=== PATIENT | female | born 1985 | race Caucasian/White ===

== ENCOUNTER 2017-02-05 14:46 | Inpatient (IN) | payer BC ==
[2017-02-05 15:23] LABS: #Lymphocytes 0.9 thou/uL (1.20-3.40); #Monocytes 0.9 thou/uL (0.11-0.59); #Neutrophils 8.6 thou/uL (1.40-6.50); %Basophils 0.1 % (0.0-1.0); %Eosinophils 0.1 % (0.0-10.0); %Lymphocytes 8.8 % (21.0-51.0); %Monocytes 8.4 % (0.0-10.0); Hematocrit 42.3 % (36.0-47.0); Mean Platelet Volume 7.4 fL (7.4-10.4); White Blood Cell (WBC) Count 10.4 thou/uL (4.8-10.8)
[2017-02-05 15:47] LABS: ALT (SGPT) 17 U/L (8-55); AST (SGOT) 20 U/L (5-34); Alkaline Phosphatase 57 U/L (40-150); Anion Gap 16 mmol/L (10-20); BUN (Urea Nitrogen) 10 mg/dL (7.0-18.7); Bilirubin, Total 1.6 mg/dL (0.2-1.2); Calc. Creatinine Clearance 0 mL/min (70-130); Carbon Dioxide 31 mmol/L (22-29); Chloride 89 mmol/L (98-107); Estimated GFR-MDRD Greater than 90; Globulin 3.2 g/dL (2.4-3.5); Protein, Total 6.9 g/dL (6.0-8.3)
[2017-02-05 15:49] LABS: Magnesium 1.4 mg/dL (1.6-2.6)
[2017-02-05 15:50] LABS: Troponin I Less than 0.010 ng/mL (< 0.028)
[2017-02-05] MEDS ORDERED: Ondansetron HCl/PF 4 MG/2 ML Vial ONE (15:51)
[2017-02-05] MEDS ORDERED: Potassium Chloride 20 MEQ TAB ONE ×3 (16:11→21:23)
[2017-02-05] MEDS ORDERED: Multivitamins, Adult 10 ML, Thiamine HCl 100 MG, Folic Acid 1 MG in Dextrose 5 %-0.45 %... IV ONE ×4 (16:15)
[2017-02-05] MEDS ORDERED: Magnesium Sulfate 2 GM/100 ML BAG ONE (16:23)
--- NOTE | 2017-02-05 16:29 | RAD ---
EXAM: ONE VIEW CHEST 02/05/17 HISTORY: Weakness. COMPARISON: None. FINDINGS: Normal cardiac silhouette. The pulmonary vessels and hilum are normal. No mass. No consolidation. No pneumothorax or osseous abnormalities. IMPRESSION: No acute cardiopulmonary process. POS: QASIMH
[2017-02-05 16:49] LABS: Bilirubin Small (Negative); Blood, Urine Negative (Negative); Glucose, Urine (Dipstick) Negative (Negative); Ketone, Urine Trace mg/dL (Negative); Nitrite Positive (Negative); Protein, Urine (Dipstick) 30 mg/dL (Neg-Trace)
[2017-02-05 16:51] LABS: Bacteria/HPF 4+ HPF (None Seen); Hyaline Casts/LPF 4-6 HYALINE CAST LPF (0-3 Hyaline); Squamous Epithelial None Seen HPF (0-3); WBC/HPF 21-50 HPF (0-3)
[2017-02-05 17:00] LABS: Amphetamine Not Detected (NotDetected); Methadone Not Detected (NotDetected); Methamphetamine Not Detected (NotDetected)
[2017-02-05 17:02] LABS: RBC/HPF 0-3 HPF (0-3)
[2017-02-05] MEDS ORDERED: Acetaminophen 325 MG TAB ONE (17:53)
[2017-02-05 20:30] LABS: Anion Gap 10 mmol/L (-14-95); Critical Call POC Critical Value; pH (Venous) 7.521 (7.35-7.45); vO2 Saturation-calc 90.7 % (0.0-100.0)
[2017-02-05 21:13] LABS: Anion Gap 11 mmol/L (10-20); BUN (Urea Nitrogen) 8 mg/dL (7.0-18.7); Calc. Creatinine Clearance 0 mL/min (70-130); Calcium 8.1 mg/dL (7.8-10.44); Carbon Dioxide 30 mmol/L (22-29); Chloride 96 mmol/L (98-107); Estimated GFR-MDRD Greater than 90
--- NOTE | 2017-02-05 22:34 | PDOC.EVN ---
Event Note - Event Note Event Note: [id number] h&p dictated 1. Hypokalemia 2. Hypomagnesemia 3. Near syncope 4. UTI Plan: see orders
[2017-02-05] MEDS ORDERED: Ondansetron HCl/PF 4 MG/2 ML Vial IVP PRN (22:35)
[2017-02-05] MEDS ORDERED: Acetaminophen 325 MG TAB PO PRN (22:35)
[2017-02-05] MEDS ORDERED: HYDROcodone/Acetaminophen 5/325 mg Tablet PO PRN (22:35)
[2017-02-05] MEDS ORDERED: Potassium Chloride 20 MEQ TAB PO SCH (22:45)
[2017-02-05] MEDS ORDERED: cefTRIAXone\\ROCEPHIN 1 GM in Sodium Chloride 0.9% 100 ML IVPB SCH (23:00)
[2017-02-06] MEDS: NS 0.9% w/ 40 MEQ KCL 1,000 ML IV SCH ×3 (00:43→22:01)
--- NOTE | 2017-02-06 03:18 | HP ---
CHIEF COMPLAINT: Near syncope. HISTORY OF PRESENT ILLNESS: Patient is a 31-year-old female with past medical history of nephrolith iasis, seasonal allergies and GERD. Patient had bilateral ureteral stents placed 3 weeks back and h ad ureteral stents removed last week on . The patient had 3 stents exchanged last week on and Friday, bilateral. Patient said after the stents exchanged, she felt extremely tired an d having severe pain, so patient went and had stents removed on Friday. The patient was feeling oka y yesterday, but today she started having decreased p.o. intake associated with nausea. The patient was having numerous episodes of vomiting for the past 3 weeks and decreased p.o. intake. Denies an y fever, denies any chills. The patient went to the restroom today, patient was extremely weak. Tony crabtree slowly landed on the ground. Denies any headache injury, denies passing out. When her husban d tried to standup the patient, patient was extremely weak as if she was going to pass out. Denies loss of consciousness. The patient was brought to the ER because of the fatigue. PAST MEDICAL HISTORY: As per HPI. PAST SURGICAL HISTORY: Cholecystectomy gastrectomy, bilateral ureteral stents placement. SOCIAL HISTORY: Positive for smoking. Denies alcohol, denies any drugs. FAMILY HISTORY: Positive for diabetes mellitus and hypertension. REVIEW OF SYSTEMS: Constitutional: Denies any fever. Denies any chills. Eyes: Denies any vision problems. Ears: Denies hearing loss. Neck: Denies neck pain. Cardiovascular System: Denies an y chest pain. Gastrointestinal: Positive for nausea and vomiting. Musculoskeletal: Denies joint deformities. Positive for generalized weakness. Cranial Nervous System: Positive for near syncope . Psychiatric: Denies depression or anxiety. Integumentary: Denies any rash. All other review of systems are reviewed and are negative. PHYSICAL EXAMINATION: CONSTITUTIONAL/VITAL SIGNS: At the time of H\T\P performed, blood pressure is 120/70, afebrile, pul se ox 97% on room air. GENERAL: The patient appears comfortable. HEENT: Pupils are equal, round and reactive. Anterior nares patent. Teeth intact. Tongue is mois t. NECK: Supple. No JVD. CARDIOVASCULAR SYSTEM: S1 and S2 present. Regular rate and rhythm. No murmurs, no rubs, no gallop s. RESPIRATORY SYSTEM: No wheezing, no rhonchi. Normal effort. Breath sounds bilaterally. GASTROINTESTINAL: Abdomen is soft and nontender. No guarding, no organomegaly, no masses felt. MUSCULOSKELETAL: No edema. INTEGUMENT: No rashes seen. PSYCHIATRIC: Denies depression or anxiety. Mood calm. CRANIAL NERVOUS SYSTEM: Intact. Follows commands. Speech clear. LABORATORY AND IMAGING DATA: At the time of H\T\P performed, white count 10.4, hemoglobin 14.7 and platelet count 184. BMP showed sodium of 134, potassium 2.6, chloride 96, CO2 of 30, BUN of 8, crea tinine 0.54, mag 1.4, calcium 8.1, troponin less than 0.010. EKG: Positive for t-wave inversions. UA positive for nitrites and 21-50 wbc's. ASSESSMENT AND PLAN: The patient is a 31-year-old female. 1. Near syncope, probably secondary to hypovolemia. Start IV fluids, monitor the patient closely. If symptoms persist, we will do a CT head. At this time, we will monitor the patient closely. 2. Hypokalemia and hypomagnesemia. Replace potassium and magnesium. Monitor closely. Check BMP i n a.m. 3. Urinary tract infection. Plan to place the patient on broad-spectrum antibiotics. We will send urine for culture and sensitivity. 4. History of recent ureteral stent removal. Monitor the patient closely. P.r.n. pain meds. 5. Nausea and vomiting. P.r.n. antiemetics. The case was discussed in detail with the patient and patient's family.
[2017-02-06 06:32] LABS: #Lymphocytes 1.4 thou/uL (1.20-3.40); #Monocytes 0.7 thou/uL (0.11-0.59); #Neutrophils 4.2 thou/uL (1.40-6.50); %Basophils 0.2 % (0.0-1.0); %Eosinophils 0.6 % (0.0-10.0); %Lymphocytes 22.1 % (21.0-51.0); %Monocytes 10.4 % (0.0-10.0); Hematocrit 34.4 % (36.0-47.0); Mean Platelet Volume 7.6 fL (7.4-10.4); Red Blood Cell (RBC) Count 3.75 mill/uL (4.20-5.40); White Blood Cell (WBC) Count 6.4 thou/uL (4.8-10.8)
[2017-02-06 06:52] LABS: Anion Gap 8 mmol/L (10-20); BUN (Urea Nitrogen) 5 mg/dL (7.0-18.7); Calc. Creatinine Clearance 204 mL/min (70-130); Calcium 7.9 mg/dL (7.8-10.44); Carbon Dioxide 30 mmol/L (22-29); Chloride 102 mmol/L (98-107); Estimated GFR-MDRD Greater than 90
[2017-02-06] MEDS ORDERED: FLU VACC QS2017-18 36 mo. & older 0.5 ML SYRINGE IM ONE (09:00)
[2017-02-06] MEDS ORDERED: Acetaminophen/Codeine 30-300mg Tablet PO PRN (10:03)
[2017-02-06] MEDS: Fluticasone Propionate Nasal Spray 16 gm Bottle NASAL SCH (10:29)
[2017-02-06] MEDS: Famotidine/PF 20 mg/2ml Vial SLOW IVP SCH ×2 (10:30→22:01)
[2017-02-06] MEDS: Heparin 5,000 UNITS/ML VIAL SC SCH ×3 (10:31→22:02)
[2017-02-06] MEDS ORDERED: Meropenem 1 GM in Sodium Chloride 0.9% 100 ML IVPB SCH (11:00)
[2017-02-06] MEDS ORDERED: Magnesium Sulfate 4 GM in Sodium Chloride 0.9% 250 ML 250 ML IVPB SCH (12:30)
--- NOTE | 2017-02-06 12:55 | PDOC.PN ---
- Subjective Encounter Start Date: 02/06/17 Encounter Start Time: 07:40 Pt seen for followup re: hypokalemia. Denies chest pain, shortness of breath, fevers or chills. - Objective MAR Reviewed: Yes Vital Signs & Weight: Vital Signs (12 hours) Temp Pulse Resp BP Pulse Ox 02/06/17 12:20 99.3 F 99 20 112/67 96 02/06/17 09:40 100 F H 108 H 20 96 02/06/17 08:52 100 F H 108 H 20 102/64 96 02/06/17 04:00 99.9 F H 100 18 101/72 95 I&O: 02/05/17 02/06/17 02/07/17 06:59 06:59 06:59 Intake Total 1490 Output Total 900 Balance 590 Result Diagrams: 02/06/17 05:50 02/06/17 05:50 EKG Reviewed by me: Yes (Tele: NSR) Phys Exam - Physical Examination Constitutional: NAD HEENT: moist MMs, sclera anicteric Neck: supple, full ROM Respiratory: no wheezing, no rales, no rhonchi, clear to auscultation bilateral Cardiovascular: RRR, no rub Gastrointestinal: soft, non-tender, positive bowel sounds Musculoskeletal: pulses present Neurological: moves all 4 limbs Psychiatric: normal affect, A&O x 3 Skin: no rash, normal turgor, cap refill <2 seconds Dx/Plan (1) Hypokalemia Code(s): E87.6 - HYPOKALEMIA Status: Acute (2) Hypomagnesemia Code(s): E83.42 - HYPOMAGNESEMIA Status: Acute (3) UTI (urinary tract infection) Status: Acute (4) Generalized weakness Code(s): R53.1 - WEAKNESS Status: Acute (5) Nephrolithiasis Status: Chronic (6) History of ureter stent Code(s): Z96.0 - PRESENCE OF UROGENITAL IMPLANTS Status: Chronic - Plan continue antibiotics, out of bed/ambulate * . Replace potassium, magnesium, recheck. Check thiamine level (pt reportedly on thiamine supplemnts after gastric surgery , but was not taking). Pt has been told by her urologist that her urine cultures grew an organism that was resistant to multiple antibiotics. Will change to IV meropenem in case the organism is ESBL+. Consult ID (h/o nephrolithiasis, ureteric stents, UTI). Review of Systems - Review of Systems Constitutional: Weakness. negative: Fever, Chills, Sweats, Malaise Respiratory: negative: Cough, Dry, Shortness of Breath, Hemoptysis, SOB with Excertion, Pleuritic Pain, Sputum, Wheezing Cardiovascular: negative: Chest Pain, Palpitations, Orthopnea, Paroxysmal Noc. Dyspnea, Edema, Light Headedness Gastrointestinal: negative: Nausea, Vomiting, Abdominal Pain, Diarrhea, Constipation, Melena, Hematochezia Genitourinary: negative: Dysuria, Frequency, Incontinence, Hematuria, Retention - Medications/Allergies Allergies/Adverse Reactions: Allergies Allergy/AdvReac Type Severity Reaction Status Date / Time STERI STRIPS Allergy Rash Uncoded 11/25/16 17:07 Medications: Current Medications Acetaminophen (Tylenol) 650 mg PO Q4H PRN PRN Reason: Headache/Fever or Pain Acetaminophen/Codeine Phosphate (Tylenol #3) 1 tab PO Q4H PRN PRN Reason: Moderate Pain (4-6) Famotidine (Pepcid) 20 mg SLOW IVP Q12HR [facility] Last Admin: 02/06/17 10:30 Dose: 20 mg Fluticasone Propionate (Flonase Nasal [place]) 0 gm NASAL DAILY [facility] Last Admin: 02/06/17 10:29 Dose: 1 spr Heparin Sodium (Porcine) (Heparin) 5,000 units SC TID [facility] Last Admin: 02/06/17 10:31 Dose: 5,000 units Potassium Chloride/Sodium Chloride (Ns 0.9% W/ 40 Meq Kcl) 1,000 mls @ 100 mls/ hr IV .Q10H [facility] Last Admin: 02/06/17 10:28 Dose: 1,000 mls Meropenem 1 gm/ Sodium (Chloride) 100 mls @ 200 mls/hr IVPB Q8H [facility] Magnesium Sulfate 4 gm/ Sodium (Chloride) 258 mls @ 86 mls/hr IVPB NOW [facility] Stop: 02/06/17 16:00 Ondansetron HCl (Zofran) 4 mg IVP Q6H PRN PRN Reason: Nausea/Vomiting Sodium Chloride (Flush - Normal Saline) 10 ml IVF Q12HR [facility] Last Admin: 02/06/17 11:52 Dose: Not Given Sodium Chloride (Flush - Normal Saline) 10 ml IVF PRN PRN PRN Reason: Saline Flush
[2017-02-06] MEDS: Meropenem 1 GM, Admixture Fee 1 EACH in Sodium Chloride 0.9% 100 ML IVPB SCH ×2 (14:46→22:12)
[2017-02-06] MEDS ORDERED: Potassium Chloride 20 MEQ TAB PO SCH (15:45)
--- NOTE | 2017-02-06 21:44 | CON ---
DATE OF CONSULTATION: 02/06/2017 REASON FOR CONSULTATION: Syncopal event, weakness. HISTORY OF PRESENT ILLNESS: A 31-year-old who had sleeve gastrectomy by Dr. Salgado. The initial pro cedure was in September and in November she had a laparoscopic cholecystectomy and has had problems with ne phrolithiasis since. She had interventions by [facility] urologist and had a number of stents placed in both sides, had treatment with broad spectrum antimicrobial therapy and the last stent was removed and replaced after lithotripsy two weeks ago. Subsequently, patient requests to have the s tent removed because of discomfort and this was done about a week ago. Now, she is admitted to this hospital with progressive fatigue, some nausea and vomiting for the past 2 weeks. No fever, no chi lls and then today on the day of admission, she felt weak and lost strength in the legs and fell yanet n, did not hit any part of her body, brought in to the hospital and BP 120/70. She has had no fever . The abdomen is soft, nontender. Respiratory symptoms are normal and the white cell count is 10.4 , hemoglobin 14.7. Sodium 134, potassium 2.6, BUN 8, creatinine 0.54, magnesium 1.4, calcium 8.1. Troponin normal. Some T-wave inversions in EKG. UA was abnormal with 21-50 wbc's. We checked the cultures that were obtained at [facility] recently a few days ago and they were negati ve. Currently, she is feeling better, more strength in lower extremities. No headaches, visual sym ptoms, sore throat, odynophagia, dysphagia. No cough, sputum production, chest pain, or abdominal p ain. No diarrhea, no genitourinary symptoms, no more vomiting. PAST MEDICAL HISTORY: Recent sleeve gastrectomy in September and then problems with vomiting, had cholec ystectomy. The pathology showed only mild chronic cholecystitis, but no acute cholecystitis and the n developed the nephrolithiasis problems, had stents placed and then started having vomiting and beny sea for the past 3 weeks. Treated with antimicrobials, lithotripsy and now, all the stents have bee n removed. DISCUSSION: Differential diagnosis includes volume depletion associated with inability to keep her oral intake probably related to the sleeve gastrectomy. The patient may need a CT of abdomen and pe lvis to verify that there were no complications from the sleeve gastrectomy. The other concern woul d be with inflammatory process remaining in the kidneys. We will go ahead and continue meropenem as currently we will monitor culture results. I think it is more likely that she is having volume dep letion, possibly with an associated complication from the sleeve gastrectomy which is leading to unr emitting vomiting. She needs some supplementation with multivitamins until that situation is clarif ied. I would advise administration of the thiamine and multivitamins. I think this has already bee n carried out by the admitting physician.
[2017-02-07] MEDS: NS 0.9% w/ 40 MEQ KCL 1,000 ML IV SCH (05:08)
[2017-02-07 05:15] LABS: Anion Gap 10 mmol/L (10-20); BUN (Urea Nitrogen) 5 mg/dL (7.0-18.7); Calc. Creatinine Clearance 204 mL/min (70-130); Calcium 8.1 mg/dL (7.8-10.44); Carbon Dioxide 24 mmol/L (22-29); Chloride 109 mmol/L (98-107); Estimated GFR-MDRD Greater than 90; Magnesium 2.2 mg/dL (1.6-2.6)
[2017-02-07 05:19] LABS: #Eosinphils 0.1 thou/uL (0.0-0.7); #Lymphocytes 1.8 thou/uL (1.20-3.40); #Monocytes 0.7 thou/uL (0.11-0.59); #Neutrophils 2.4 thou/uL (1.40-6.50); %Basophils 0.3 % (0.0-1.0); %Eosinophils 2.1 % (0.0-10.0); %Lymphocytes 35.4 % (21.0-51.0); %Monocytes 14.3 % (0.0-10.0); Hematocrit 35.2 % (36.0-47.0); Mean Platelet Volume 8.1 fL (7.4-10.4); Red Blood Cell (RBC) Count 3.72 mill/uL (4.20-5.40)
[2017-02-07] MEDS: Meropenem 1 GM, Admixture Fee 1 EACH in Sodium Chloride 0.9% 100 ML IVPB SCH ×3 (06:25→21:42)
[2017-02-07] MEDS: Famotidine/PF 20 mg/2ml Vial SLOW IVP SCH ×2 (09:03→20:01)
[2017-02-07] MEDS: Heparin 5,000 UNITS/ML VIAL SC SCH ×3 (09:03→20:00)
[2017-02-07] MEDS: Fluticasone Propionate Nasal Spray 16 gm Bottle NASAL SCH (09:07)
--- NOTE | 2017-02-07 12:40 | PDOC.PN ---
- Subjective Encounter Start Date: 02/07/17 Encounter Start Time: 12:38 Pt seen for followup re: UTI. Feels better. No vomiting, still nauseous on and off. No fevers or chills. - Objective MAR Reviewed: Yes Vital Signs & Weight: Vital Signs (12 hours) Temp Pulse Resp BP BP Pulse Ox 02/07/17 12:04 98.1 F 83 18 98 02/07/17 11:45 98.1 F 83 18 113/79 98 02/07/17 08:58 98.1 F 79 17 107/68 99 02/07/17 04:00 98.5 F 85 16 99/69 97 Weight Admit Weight 155 lb 12.8 oz Weight 160 lb I&O: 02/06/17 02/07/17 02/08/17 06:59 06:59 06:59 Intake Total 1790 1601 Output Total 1550 800 Balance 240 801 Result Diagrams: 02/07/17 04:28 02/07/17 04:28 EKG Reviewed by me: Yes (Tele: NSR) Phys Exam - Physical Examination Constitutional: NAD HEENT: moist MMs, sclera anicteric, oral pharynx no lesions Neck: no JVD, supple Respiratory: no wheezing, no rales, no rhonchi, clear to auscultation bilateral Cardiovascular: RRR Gastrointestinal: soft, non-tender, no distention, positive bowel sounds Musculoskeletal: pulses present Neurological: moves all 4 limbs Lymphatic: no nodes Psychiatric: normal affect, A&O x 3 Skin: no rash, normal turgor, cap refill <2 seconds Dx/Plan (1) UTI (urinary tract infection) Status: Acute (2) Generalized weakness Code(s): R53.1 - WEAKNESS Status: Acute (3) History of ureter stent Code(s): Z96.0 - PRESENCE OF UROGENITAL IMPLANTS Status: Chronic (4) Nephrolithiasis Status: Chronic (5) Hypokalemia Code(s): E87.6 - HYPOKALEMIA Status: Resolved (6) Hypomagnesemia Code(s): E83.42 - HYPOMAGNESEMIA Status: Resolved - Plan plan discussed w/ family, continue antibiotics, out of bed/ambulate, DVT proph w /lovenox * . Continue IV meropenem, await urine cultures (Multi drug resistant Enterococcus in cultures done at an outside facility). Ambulate patient. Discontinue IV fluids, advance diet. Transfer to surgical floor. Review of Systems - Review of Systems Constitutional: negative: Fever, Chills, Sweats, Weakness, Malaise Respiratory: negative: Cough, Dry, Shortness of Breath, Hemoptysis, SOB with Excertion, Pleuritic Pain, Sputum, Wheezing Cardiovascular: negative: Chest Pain, Palpitations, Orthopnea, Paroxysmal Noc. Dyspnea, Edema, Light Headedness Gastrointestinal: negative: Nausea, Vomiting, Abdominal Pain, Diarrhea, Constipation, Melena, Hematochezia - Medications/Allergies Allergies/Adverse Reactions: Allergies Allergy/AdvReac Type Severity Reaction Status Date / Time STERI STRIPS Allergy Rash Uncoded 11/25/16 17:07 Medications: Current Medications Acetaminophen (Tylenol) 650 mg PO Q4H PRN PRN Reason: Headache/Fever or Pain Acetaminophen/Codeine Phosphate (Tylenol #3) 1 tab PO Q4H PRN PRN Reason: Moderate Pain (4-6) Famotidine (Pepcid) 20 mg SLOW IVP Q12HR [facility] Last Admin: 02/07/17 09:03 Dose: 20 mg Fluticasone Propionate (Flonase Nasal [place]) 0 gm NASAL DAILY [facility] Last Admin: 02/07/17 09:07 Dose: 1 spr Heparin Sodium (Porcine) (Heparin) 5,000 units SC TID [facility] Last Admin: 02/07/17 09:03 Dose: 5,000 units Meropenem 1 gm/ Miscellaneous Medication 1 each/ Sodium Chloride 100 mls @ 200 mls/hr IVPB Q8HR [facility] Ondansetron HCl (Zofran) 4 mg IVP Q6H PRN PRN Reason: Nausea/Vomiting Sodium Chloride (Flush - Normal Saline) 10 ml IVF Q12HR [facility] Last Admin: 02/07/17 09:08 Dose: 10 ml Sodium Chloride (Flush - Normal Saline) 10 ml IVF PRN PRN PRN Reason: Saline Flush
[2017-02-07 14:24] VITALS: BMI 25.0
--- NOTE | 2017-02-07 15:19 | PRG ---
DATE OF SERVICE: 02/07/2017 SUBJECTIVE: Feeling better, still having weakness in lower extremities, cannot prop herself up from bed without assistance, and needs assistance with ambulation, having improvement in the inability to hold solids and liquids down. No more vomiting, no abdominal pain, no dysuria. OBJECTIVE: VITAL SIGNS: She has been afebrile except for the very first few measurements when she had 100, and BP 130/79, pulse 83, respirations 18, O2 saturation 98%. SKIN EXAM: Normal. No lymphadenopathy. HEENT: Ocular movements are conjugate. Oral cavity moist. NECK: Supple. LUNGS: Clear. HEART: S1, S2, regular rate. ABDOMEN: Soft, not distended. EXTREMITIES: She has fairly weak thigh extensors. She has hyporeflexia noted. Plantar responses are indifferent. LABORATORY DATA: White cell count is 5.0, hemoglobin 11, platelets 141. The cultures with negative urine cultures thus far. ASSESSMENT: Recent sleeve gastrectomy and then development of problems, which led to cholecystectomy. The pathology only showed mild chronic findings, and then continued with inability to maintain proper oral intake. Developed nephrolithiasis, which required intervention with stenting, removal, and more recently treated for presumptive UTI, although cultures at [place] and [place] were negative. Reportedly, cultures at her doctor's office were positive, now presents with loss of strength in lower extremities, inability to stand up without obvious syncopal event on retrospect. DISCUSSION: In the absence of neutrophilia and in the presence of negative cultures done, we will have to question the urinary findings as to its relationship to the weakness demonstrated. It is possible that the patient has neuropathy associated with malnutrition, following a sleeve gastrectomy, which led to the weakness displayed. Waiting on the thiamine level submitted. Continue vitamin supplementation as well as trace mineral supplementation. Add Zinc level to lab orders. MTDD
[2017-02-08] MEDS: Meropenem 1 GM, Admixture Fee 1 EACH in Sodium Chloride 0.9% 100 ML IVPB SCH ×3 (06:07→21:46)
[2017-02-08] MEDS ORDERED: Sodium Chloride 0.65% Nasal 44 ML BOT EA NARE PRN (07:29)
[2017-02-08] MEDS ORDERED: Mag-Al 1200 mg/1200 mg/30 ML UDCUP PO PRN (07:29)
[2017-02-08] MEDS ORDERED: Senokot 8.6 MG TAB PO PRN (07:29)
[2017-02-08] MEDS ORDERED: hydrALAZINE 20 MG/ML VIAL SLOW IVP PRN (07:29)
[2017-02-08] MEDS ORDERED: Loperamide HCl 2 MG CAP PO PRN (07:29)
[2017-02-08] MEDS ORDERED: Temazepam 15 MG CAP PO PRN (07:29)
[2017-02-08] MEDS ORDERED: Loratadine 10 MG TAB PO PRN (07:29)
[2017-02-08] MEDS ORDERED: Diabetic Tussin 200 MG/10 ML UDCUP PO PRN (07:29)
[2017-02-08] MEDS ORDERED: Ondansetron ODT 4 MG TAB PO PRN (07:29)
[2017-02-08] MEDS ORDERED: Eucerin (Mineral Oil/Petrolatum,White) 30 gm Jar TOP PRN (07:29)
[2017-02-08] MEDS ORDERED: HYDROcodone/Acetaminophen 5/325 mg Tablet PO PRN (07:29)
[2017-02-08] MEDS ORDERED: Chloraseptic Spray 180 ml Bottle PO PRN (07:29)
[2017-02-08] MEDS ORDERED: Milk Of Magnesia 30 ML UDCUP PO PRN (07:29)
[2017-02-08] MEDS: Famotidine/PF 20 mg/2ml Vial SLOW IVP SCH ×2 (09:12→20:08)
[2017-02-08] MEDS: Heparin 5,000 UNITS/ML VIAL SC SCH ×3 (09:13→20:15)
[2017-02-08] MEDS: Fluticasone Propionate Nasal Spray 16 gm Bottle NASAL SCH (10:25)
--- NOTE | 2017-02-08 10:47 | PDOC.PN ---
- Subjective Encounter Start Date: 02/08/17 Encounter Start Time: 07:40 -: old records requested/rev Patient seen and examined. No new complaints. No overnight events, no fever - Objective MAR Reviewed: Yes Vital Signs & Weight: Vital Signs (12 hours) Temp Pulse Resp BP BP BP Pulse Ox 02/08/17 08:00 98.3 F 73 14 109/73 98 02/08/17 04:19 97.6 F 83 16 104/73 98 02/07/17 23:45 98.1 F 83 16 105/72 98 Weight Admit Weight 155 lb 12.8 oz Weight 160 lb I&O: 02/07/17 02/08/17 02/09/17 06:59 06:59 06:59 Intake Total 1790 2221 Output Total 1550 800 Balance 240 1421 Result Diagrams: 02/07/17 04:28 02/07/17 04:28 Phys Exam - Physical Examination Constitutional: NAD HEENT: PERRLA, moist MMs, sclera anicteric Neck: no JVD, supple Respiratory: no wheezing, no rales, no rhonchi Cardiovascular: RRR, no significant murmur, no rub Gastrointestinal: soft, non-tender, no distention, positive bowel sounds Musculoskeletal: no edema, pulses present Neurological: non-focal, normal sensation, moves all 4 limbs Psychiatric: normal affect, A&O x 3 Skin: no rash, normal turgor Dx/Plan (1) Generalized weakness Code(s): R53.1 - WEAKNESS Status: Resolved (2) UTI (urinary tract infection) Status: Acute (3) History of ureter stent Code(s): Z96.0 - PRESENCE OF UROGENITAL IMPLANTS Status: Chronic Comment: s/ p stent placement and then removal (4) Nephrolithiasis Status: Chronic Comment: ureteral stone requred stent placement and then removal (5) Hypokalemia Code(s): E87.6 - HYPOKALEMIA Status: Resolved (6) Hypomagnesemia Code(s): E83.42 - HYPOMAGNESEMIA Status: Resolved - Plan cont current plan of care, plan discussed w/ family, continue antibiotics * continue meropenam for now. * repeat culture is negative here * will need macrobid on discharge * dr martinez following Review of Systems - Review of Systems ENT: negative: Ear Pain, Ear Discharge, Nose Pain, Nose Discharge, Nose Congestion, Mouth Pain, Mouth Swelling, Throat Pain, Throat Swelling, Other Respiratory: negative: Cough, Dry, Shortness of Breath, Hemoptysis, SOB with Excertion, Pleuritic Pain, Sputum, Wheezing Cardiovascular: negative: Chest Pain, Palpitations, Orthopnea, Paroxysmal Noc. Dyspnea, Edema, Light Headedness, Other Gastrointestinal: negative: Nausea, Vomiting, Abdominal Pain, Diarrhea, Constipation, Melena, Hematochezia, Other Genitourinary: negative: Dysuria, Frequency, Incontinence, Hematuria, Retention , Other Musculoskeletal: negative: Neck Pain, Shoulder Pain, Arm Pain, Back Pain, Hand Pain, Leg Pain, Foot Pain, Other - Medications/Allergies Allergies/Adverse Reactions: Allergies Allergy/AdvReac Type Severity Reaction Status Date / Time STERI STRIPS Allergy Rash Uncoded 11/25/16 17:07 Medications: Current Medications Acetaminophen (Tylenol) 650 mg PO Q4H PRN PRN Reason: Headache/Fever or Pain Acetaminophen/Codeine Phosphate (Tylenol #3) 1 tab PO Q4H PRN PRN Reason: Moderate Pain (4-6) Hydrocodone Bitart/Acetaminophen ([place] 5/325) 1 tab PO Q4H PRN PRN Reason: Moderate Pain (4-6) Al Hydroxide/Mg Hydroxide (Maalox) 15 ml PO Q4H PRN PRN Reason: Heartburn or Indigestion Famotidine (Pepcid) 20 mg SLOW IVP Q12HR [facility] Last Admin: 02/08/17 09:12 Dose: 20 mg Fluticasone Propionate (Flonase Nasal [place]) 0 gm NASAL DAILY [facility] Last Admin: 02/08/17 10:25 Dose: 1 spr Guaifenesin (Robitussin Sf) 200 mg PO Q4H PRN PRN Reason: Cough Heparin Sodium (Porcine) (Heparin) 5,000 units SC TID [facility] Last Admin: 02/08/17 09:13 Dose: 5,000 units Hydralazine HCl (Apresoline) 10 mg SLOW IVP Q4H PRN PRN Reason: Systolic BP > 180 Meropenem 1 gm/ Miscellaneous Medication 1 each/ Sodium Chloride 100 mls @ 200 mls/hr IVPB Q8HR [facility] Last Admin: 02/08/17 06:07 Dose: 100 mls Loperamide HCl (Imodium) 2 mg PO PRN PRN PRN Reason: Diarrhea/Loose Stools Loratadine (Claritin) 10 mg PO DAILYPRN PRN PRN Reason: Sinus Symptoms Magnesium Hydroxide (Milk Of Magnesium) 30 ml PO DAILYPRN PRN PRN Reason: Constipation Mineral Oil/White Petrolatum (Eucerin Cream) 0 gm TOP BIDPRN PRN PRN Reason: Dry Skin Ondansetron HCl (Zofran) 4 mg IVP Q6H PRN PRN Reason: Nausea/Vomiting Ondansetron HCl (Zofran Odt) 4 mg PO Q6H PRN PRN Reason: Nausea/Vomiting Phenol (Chloraseptic [place] 180 Ml Bot) 0 ml PO PRN PRN PRN Reason: Sore Throat Senna (Senokot) 2 tab PO HSPRN PRN PRN Reason: Constipation Sodium Chloride (Flush - Normal Saline) 10 ml IVF Q12HR [facility] Last Admin: 02/08/17 09:13 Dose: 10 ml Sodium Chloride (Flush - Normal Saline) 10 ml IVF PRN PRN PRN Reason: Saline Flush Sodium Chloride (Reagan Nasal [place] 0.65%) 0 ml EA NARE QIDPRN PRN PRN Reason: Nasal Congestion Temazepam (Restoril) 15 mg PO HSPRN PRN PRN Reason: Insomnia
[2017-02-09] MEDS: Meropenem 1 GM, Admixture Fee 1 EACH in Sodium Chloride 0.9% 100 ML IVPB SCH (05:50)
[2017-02-09] MEDS: Heparin 5,000 UNITS/ML VIAL SC SCH (08:45)
[2017-02-09] MEDS: Famotidine/PF 20 mg/2ml Vial SLOW IVP SCH (08:46)
[2017-02-09] MEDS: Fluticasone Propionate Nasal Spray 16 gm Bottle NASAL SCH (09:08)
[2017-02-09 11:54] VITALS: BP 93/65; TEMP 97.5
--- NOTE | 2017-02-09 12:00 | DIS ---
DATE OF ADMISSION: 02/05/2017 DATE OF DISCHARGE: 02/09/2017 PRIMARY CARE PHYSICIAN: Dr. Magdiel Caro. DISCHARGE DISPOSITION: Home. PRIMARY DISCHARGE DIAGNOSIS: Urinary tract infection. SECONDARY DISCHARGE DIAGNOSES: 1. History of ureteral stent, nephro- and ureterolithiasis. 2. Hypokalemia, hypomagnesemia and generalized weakness, improved. PRIMARY PROCEDURE/OPERATION: None. RADIOLOGICAL INVESTIGATION: Chest x-ray was normal. SIGNIFICANT LABS: WBC 5.0, hemoglobin 11.8 and platelets 141. Sodium 139, potassium 4.0, BUN 5, cr eatinine 0.45 and magnesium 2.2. LFT normal. Urinalysis suggestive of UTI. Urine drug screen nega tive. DISCHARGE MEDICATIONS: Macrobid 100 mg p.o. b.i.d. for 10 days and [place] 10 one tablet q.6 hourly p .r.n. CONTRAINDICATIONS: None. CODE STATUS: FULL CODE. INPATIENT PESTICIDE APPLICATOR: Dr. Wiseman was consulted while in hospital. TEST RESULTS PENDING ON DISCHARGE: None. ALLERGIES: No known drug allergy. DISCHARGE PLAN: Post hospital, the patient will follow up with primary care physician as well as [facility] urologist. HOSPITAL COURSE: A 31-year-old female who has gastric sleeve surgery and she has nephro- and ureter olithiasis. She had a urologic procedure by her urologist in [place]. Subsequently, patient was peterson ving fever and generalized weakness. She went to [place] [facility] and she had urine culture d one. Her urine culture was positive for multidrug resistant organism; it was sensitive to MEROPENEM as well as MACROBID. We treated her with meropenem since she had significant clinical improvement. We also corrected her all abnormal electrolytes during this admission. The patient is given dieta ry education. On discharge, we changed to Macrobid for another 10 days. Patient will follow up with primary care physician. The patient is seen and examined at bedside today. All review of systems reviewed with her are nega tive. Plan of care discussed with the patient. New medication sent to her pharmacy. PHYSICAL EXAMINATION: VITAL SIGNS: Currently, temperature 97.9, pulse 70, respiratory rate 16, saturation 98%, blood pres sure 104/67 and weight 160 pounds. GENERAL: The patient is currently alert and awake, no acute distress. HEAD: Normocephalic, atraumatic. EYES: Pupils round, reactive to light. Extraocular muscle intact. ENT: Oropharynx within normal limits. Moist mucous membranes. No oral lesions. No pharyngeal mukesh thema. No exudate. NECK: Supple, range of motion is normal. No meningeal signs of irritation. LUNGS: Clear to auscultation without any rhonchi. CARDIAC: S1, S2 regular without any murmur. ABDOMEN: Soft and benign. EXTREMITIES: No edema. NEUROLOGIC: Nonfocal examination.
--- OUTSIDE RECORDS SUMMARY | 2017-02-11 07:56 | XMS | Clinical Summary ---
:1985 Author Organization [facility] Address [address] [place] [address] Phone Care Team Providers Name Role Phone , Primary Care Provider Unavailable Allergies Not on File Current Medications Not on file Active Problems Not on file Social History Tobacco Use Types Packs/Day Years Used Date Never Assessed Sex Assigned at Date Recorded Not on file Last Filed Vital Signs Not on file Plan of Treatment Not on file Results Not on filefrom Last 3 Months
== END 2017-02-09 12:45 | disposition home or self-care (01) | DRG 690 ==
LOC: ERS 14:46 → 2NO 22:51 → SURG A 02-07 11:33
PROVIDERS: ADMIT Internal Medicine; ATTEND Internal Medicine
DX: N39.0 Urinary tract infection, site not specified (principal); E83.42 Hypomagnesemia; N20.2 Calculus of kidney with calculus of ureter; B95.2 Enterococcus as the cause of diseases classified elsewhere; Z16.24 Resistance to multiple antibiotics; E86.9 Volume depletion, unspecified; R11.2 Nausea with vomiting, unspecified; E87.6 Hypokalemia; Z98.84 Bariatric surgery status; Z68.24 Body mass index [BMI] 24.0-24.9, adult; R55 Syncope and collapse; W01.0XXA Fall on same level from slipping, tripping and stumbling without subsequent striking against object, initial encounter; Z90.49 Acquired absence of other specified parts of digestive tract; K21.9 Gastro-esophageal reflux disease without esophagitis; F17.210 Nicotine dependence, cigarettes, uncomplicated
CPT/HCPCS: 36415; 71010; 80048; 80053; 80306; 81003; 81015; 81025; 82330; 82525; 82553; 82607; 82803; 83690; 83735; 84207; 84425; 84484; 84630; 85025; 93005; 96361; 96365; 96366; 96367; 96368; 96375; A4216; J0696; J0744; J1644; J2185; J2405; J3411; J3475; J3480; J7042; J7050; S0028